=== PATIENT | male | born 1950 | race Caucasian/White ===

== ENCOUNTER → 2019-01-03 07:37 | Outpatient (CLI) | payer MEDICARE, OTHER, SELFPAY ==
--- NOTE | 2019-01-03 | DI.MRI.S_ITS ---
PROCEDURE: MR BRAIN (IAC) WWO CON INDICATIONS: Sensorineural hearing loss, unilateral, left ear, TECHNIQUE: Noncontrast sagittal T1 spin echo, axial FLAIR, axial gradient echo, axial diffusion and ADC through the brain. Axial thin-slice 3D CISS, coronal TruFISP, axial T1 spin echo with fat saturation through the internal auditory canals. After the administration of contrast, thin slice axial and coronal T1 spin echo with fat saturation through the internal auditory canals, and axial T1 spin echo with fat saturation through the brain. COMPARISON: [facility], MR, STROKE PROTOCOL, 09/27/2015, 16:57. [facility], CT, HEAD WITHOUT CONTRAST, 09/27/2015, 14:51. FINDINGS: Image quality: Excellent. Cerebellopontine angles: No cerebellopontine angle masses. Inner ear structures appear normally formed. No suspicious enhancement in the internal auditory canal or along the course of the 7th cranial nerve. CSF spaces: Ventricles are normal in size and shape. No extra-axial fluid collections. Basal cisterns are patent. Brain: No intracranial bleeds or mass effects. David-white matter interface is intact. No abnormal intracranial enhancement. Brain parenchymal volume loss is seen. Mild chronic small vessel ischemic change is seen. Diffusion weighted images demonstrate no acute ischemic insults. Brainstem appears normal. Normal intravascular flow voids are present. Skull and face: Calvarial marrow signal is normal. Orbits appear normal. Sinuses: Sinuses and mastoids are clear. IMPRESSION: No significant abnormality is seen. Specifically, no masses or abnormal enhancement are seen within the cerebellopontine angle cisterns or within the internal auditory canals. Note is made of age-appropriate brain parenchymal volume loss and chronic small vessel ischemic changes. No findings of acute or subacute infarction can be seen. Dictated by: Jeffrey Watts M.D. on 01/03/2019 at 8:06 Approved by: Jeffrey Watts M.D. on 01/03/2019 at 8:10
== END ==
PROVIDERS: Family Provider Internal Medicine; PCP Internal Medicine; Visit Provider Otolaryngology
DX: H90.42 Sensorineural hearing loss, unilateral, left ear, with unrestricted hearing on the contralateral side (principal)
CPT/HCPCS: 70553; A9579

== ENCOUNTER 2019-06-25 07:22 | Day surgery (SDC) | payer MEDICARE, OTHER, SELFPAY ==
--- NOTE | 2019-06-25 | PATH_ITS ---
[facility] Accession Number: [id number] . 01 Material submitted: . colon - ASCENDING COLON POLYP X2 . 01 Clinical history: . COLONOSCOPY W/POSS BX . 02 Diagnosis: Ascending Colon Polyp x2: Portions of tubular adenoma x2. Superficial portion of colorectal mucosa x1 with a benign lymphoid aggregate and no significant histomorphologic abnormality. MRV 06/26/2019 1114 Local . 02 Electronically signed: . Marilyn Jama MD, Pathologist NPI- [id number] . 01 Gross description: . ASCENDING COLON POLYP X2: Received in formalin are 3 fragment(s) of cardenas, soft tissue measuring 0.1 x 0.1 x 0.1 cm to 0.3 x 0.3 x 0.2 cm submitted entirely in 1 cassette(s) /DM 06/25/2019 1918 Local . 02 Pathologist provided ICD-10: Z86.010, K63.5 . 02 CPT . 188802 Performed at: 01 [facility] [address], [place], [place] [id number] MD Jamaal Peace MD Phone: [phone] Performed at: [address] [facility] [address] [place], [place] [id number] MD Amber Washington MD Phone: [phone]
[2019-06-25 07:57] VITALS: BP 141/84; PULSE 74; RESP 18; TEMP 36.6; O2SAT 98
[2019-06-25 07:59] VITALS: BMI 25.0
[2019-06-25] MEDS: SODIUM CHLORIDE 0.9% 1,000 ML 42 ML IV (08:17)
--- NOTE | 2019-06-25 08:50 | PM.HP.1 ---
History of Present Illness History of Present Illness Chief complaint: [id number] COLONOSCOPY W/POSS BX Patient History Family & Social History Social History: household members spouse Meds Home Medications and Allergies Home Medications Medication Instructions Recorded Confirmed Type amlodipine 10 mg PO DAILY 06/25/19 06/25/19 History rosuvastatin 10 mg PO DAILY 06/25/19 06/25/19 History Allergies Allergy/AdvReac Type Severity Reaction Status Date / Time No Known Drug Allergies Allergy Verified 06/25/19 08:37 Exam Vital Signs (past 8 hours): - 06/25/19 07:57 Temperature 97.9 F Pulse Rate 74 Respiratory Rate 18 Blood Pressure 141/84 H Pulse Oximetry 98 Oxygen Delivery Method Room Air Narrative Exam Narrative: Oropharynx free of lesions Chest clear to auscultation and percussion Cardiac exam reveals no S3 or murmur Assessment & Plan Assessment & Plan narrative: Personal history of colon polyps with strong family history of colon cancer in a first-degree relative (brother at for age 47) and children with adenomas at a young age in their 30s. Need for follow-up colonoscopy Risks, benefits, alternatives have been explained. Further recommendations will follow the results of the colonoscopy. I would suggest that they follow-up on their brothers care and make sure he has had genetic testings for HNPCC
[2019-06-25] MEDS: MIDAZOLAM 5 MG/5 ML VIAL IV (09:08)
[2019-06-25] MEDS: fentaNYL 250 MCG/5 ML INJ IV (09:09)
--- NOTE | 2019-06-25 09:10 | PM.OP.ENDO ---
Operative Date/Time/Diagnoses Date of procedure: 06/25/19 Time of procedure: 09:10 Procedure & Clinicians Study performed: Colonoscopy Same procedure as scheduled: Yes Indications: Personal history of colon polyps and family history of colon cancer in a brother at age 47. Children have adenomas in their 30s Surgeon: Michelle Deleon Procedure Notes Procedure in detail: After informed consent was obtained the patient was placed in a left lateral decubitus position. The video colonoscope was introduced the rectum slowly advanced to the cecum. Preparation was good. On slow withdrawal mucosa was carefully examined. The scope was removed. Patient tolerated procedure well. Blood loss none Complications none Sedation Total sedation time 20 minutes Versed 4 mg fentanyl 100 mg IV titration Findings 1. Scattered diverticulosis in left colon 2. Two polyps in the ascending colon 1 5 mm and the other 3 mm both removed completely with Jumbo biopsy forceps 3. Otherwise negative colonoscopy to cecum We will get pathology results to him but suggest follow-up in 3-5 years. I also suggest a check with his brother regarding whether he has been tested for Galeas syndrome. This would help determine whether he should have follow-up colonoscopies and a 2 year interval or 5 year interval.
[2019-06-25 09:14] VITALS: BP 116/70; PULSE 61; RESP 12; TEMP 36.7; O2SAT 96
[2019-06-25 09:19] VITALS: BP 107/67; PULSE 59; RESP 8; O2SAT 95
[2019-06-25 09:27] VITALS: BP 109/66; PULSE 64; RESP 10; O2SAT 96
[2019-06-25 09:30] VITALS: BP 107/73; PULSE 62; RESP 12; TEMP 36.8; O2SAT 95
== END 2019-06-25 09:44 | disposition home or self-care (01) ==
PROVIDERS: Family Provider Internal Medicine; PCP Internal Medicine; Visit Provider Internal Medicine Gastroenterology
PROC: 0DJD8ZZ Inspection of Lower Intestinal Tract, Via Natural or Artificial Opening Endoscopic (ICD-10-PCS; CPT 45378; principal; 2019-06-25 08:30)
DX: Z12.11 Encounter for screening for malignant neoplasm of colon (principal); Z86.010 Personal history of colon polyps; Z80.0 Family history of malignant neoplasm of digestive organs; K57.30 Diverticulosis of large intestine without perforation or abscess without bleeding; D12.2 Benign neoplasm of ascending colon
CPT/HCPCS: 45380; J2250; J3010

== ENCOUNTER → 2019-07-02 15:51 | Outpatient (ROUT) | payer MEDICARE, OTHER, SELFPAY ==
[2019-07-02 16:33] LABS: Aspartate Aminotransferase 45 IU/L (17-59); Blood Urea Nitrogen 22 mg/dL (9-20); Calcium 9.9 mg/dL (8.4-10.2); Carbon Dioxide 30 mmol/L (22-32); Chloride 101 mmol/L (98-107); Cholesterol 95 mg/dL (140-199); Estimated Glomerular Filt Rate > 60.0 mL/min (>60); Glucose 96 mg/dL (80-110); HDL Cholesterol 42 mg/dL (40-60); HEMOLYSIS < 15 (0-50); LDL Cholesterol Calculated 35 mg/dL (<100); Potassium 4.4 mmol/L (3.4-5.1); Sodium 140 mmol/L (137-145); Triglycerides 90 mg/dL (35-150)
[2019-07-02 17:00] LABS: Prostate Specific Antigen 3.75 ng/mL (0.10-4.00)
== END ==
PROVIDERS: Family Provider Internal Medicine; PCP Internal Medicine; Visit Provider Internal Medicine
DX: I10 Essential (primary) hypertension (principal); E78.2 Mixed hyperlipidemia; N40.0 Benign prostatic hyperplasia without lower urinary tract symptoms
CPT/HCPCS: 80048; 80061; 84153; 84450

== ENCOUNTER → 2020-07-05 19:30 | Outpatient (ROUT) | payer MEDICARE, OTHER, SELFPAY ==
[2020-07-05 19:46] LABS: Add Manual Diff / Slide Review NO; Basophils Absolute Auto 0 /uL (0-100); Basophils Percent Auto 0.4 % (0-2); Eosinophils Absolute Auto 100 /uL (0-450); Eosinophils Percent Auto 1.2 % (2-4); Hematocrit 39.5 % (41-53); Hemoglobin 13.7 g/dL (13.5-17.5); Lymphocytes Absolute Auto 2300 /uL (1100-4500); Lymphocytes Percent Auto 28.8 % (25-40); Mean Corpuscular HGB Conc 34.6 % (30-36); Mean Corpuscular Hemoglobin 31.9 PG (26-34); Monocytes Absolute Auto 700 /uL (0-900); Monocytes Percent Auto 8.9 % (3-14); Neutrophils Absolute Auto 4800 /uL (1500-7000); Neutrophils Percent Auto 60.7 % (50-75); Platelet Count 223 X10^3/uL (150-400); Red Blood Cell Count 4.29 X10^6/uL (4.5-5.9); Red Cell Distribution Width 12.6 % (11.6-14.8); White Blood Cell Count 7.9 X10^3/uL (4.5-11.0)
[2020-07-05 19:55] LABS: Aspartate Aminotransferase 36 IU/L (17-59); BUN Creatinine Ratio 25.3 (6-22); Blood Urea Nitrogen 23 mg/dL (9-20); Calcium 9.6 mg/dL (8.4-10.2); Carbon Dioxide 30 mmol/L (22-32); Chloride 104 mmol/L (98-107); Cholesterol 104 mg/dL (140-199); Estimated Glomerular Filt Rate > 60.0 mL/min (>60); Glucose 103 mg/dL (80-110); HDL Cholesterol 46 mg/dL (40-60); HEMOLYSIS < 15 (0-50); LDL Cholesterol Calculated 33 mg/dL (<100); Potassium 4.8 mmol/L (3.4-5.1); Sodium 138 mmol/L (137-145); Triglycerides 125 mg/dL (35-150)
[2020-07-05 20:24] LABS: Prostate Specific Antigen 3.59 ng/mL (0.10-4.00)
== END ==
PROVIDERS: Family Provider Internal Medicine; PCP Internal Medicine; Visit Provider Internal Medicine
DX: I10 Essential (primary) hypertension (principal); N40.0 Benign prostatic hyperplasia without lower urinary tract symptoms; E78.2 Mixed hyperlipidemia
CPT/HCPCS: 80048; 80061; 84153; 84450; 85025

== ENCOUNTER 2022-12-04 06:53 | Day surgery (SDC) | payer OTHER, SELFPAY ==
--- NOTE | 2022-12-04 | PATH_ITS ---
[facility] Accession Number: [id number] No. of containers..01 Tissue . 01 Material submitted: . colon - TRANSVERSE COLON POLYP . 01 Diagnosis: Transverse Colon Polyp, Biopsy: Tubular adenoma. MRV 12/07/2022 1429 Local . 01 Electronically signed: . Meghna York MD, Pathologist NPI- [id number] . 01 Gross description: . The specimen is received in formalin labeled with the patient's name, , and transverse colon polyp, and consists of a single cardenas soft tissue fragment measuring 0.5 cm in greatest dimension. Submitted entirely in cassette A1. ([id number]) /MRV 12/06/2022 1556 Local . 01 Pathologist provided ICD-10: D12.3 . 01 CPT . 964936 Specimen Comment: A courtesy copy of this report has been sent to [phone] Performed at: 01 [facility] [address] [place] [address], [place], [place] [id number] MD Jamaal Peace MD Phone: [phone]
[2022-12-04] MEDS: LACTATED RINGERS 1,000 ML 42 ML IV (07:09)
[2022-12-04 07:14] VITALS: BP 146/78; PULSE 69; RESP 20; TEMP 36.4; O2SAT 98; BMI 26.4
--- NOTE | 2022-12-04 07:52 | PM.HP.1 ---
History of Present Illness History of Present Illness Date Patient Seen: 12/04/22 Time Patient Seen: 07:52 Chief complaint: Dx Colonoscopy w/poss bx Narrative: Family history of colon cancer and a personal history of colon polyps. [facility] Social History household members: spouse Smoking Status: Never smoker alcohol intake: current Meds Home Medications and Allergies Home Medications Medication Instructions Recorded Confirmed Type amlodipine 10 mg tablet 10 mg PO DAILY 06/25/19 12/04/22 History Allergies Allergy/AdvReac Type Severity Reaction Status Date / Time No Known Drug Allergies Allergy Verified 12/04/22 07:13 Review of Systems Review of Systems ROS: Yes All systems reviewed with the patient and are negative except as otherwise documented Exam Vital Signs (past 8 hours): - 12/04/22 07:14 Temperature 97.5 F L Pulse Rate 69 Respiratory Rate 20 Blood Pressure 146/78 H Pulse Oximetry 98 Oxygen Delivery Method Room Air Oxygen Delivery Method Room Air Const General: cooperative HENMT Head: normal to inspection Eyes General: appearance normal, both eyes and all related structures Neck Neck: normal visual inspection Chest Chest: normal inspection of the chest Resp Effort & Inspection: normal respiratory effort Cardio Rate: regular rate GI Inspection: normal to inspection Skin General: no rashes or lesions noted Neuro General: patient alert and patient awake Extrem General: normal to inspection and no pedal edema Psych Appearance: grossly normal Assessment & Plan Assessment & Plan narrative: 71-year-old male with a family history of colon cancer and a personal history of colon polyps. Colonoscopy is pursued today.
--- NOTE | 2022-12-04 07:53 | PM.PREOP ---
Pre-operative Note Interval Note History & Physical reviewed/Exam performed by Physician: Yes Changes to H&P: No ASA Class (for procedural sedation): II
--- NOTE | 2022-12-04 08:25 | P.OP.COLON_ITS ---
Operative Date/Time/Diagnoses Date of procedure: 12/04/22 Time of procedure: 08:25 Pre-op diagnosis: Family history of colon cancer and a personal history of colon polyps Post-op diagnosis: same Procedure & Clinicians Study performed: Colonoscopy with cold snare polypectomy Same procedure as scheduled: Yes Indications: Family history of colon cancer and a personal history of colon polyps Surgeon: Zelalem Mitchell Procedure Notes SCOAP/Timeout: Done Procedure in detail: After the risks and benefits were explained, written and verbal informed consent was obtained. The patient was brought into the procedure room and placed into the left lateral decubitus position. Please see anesthesia notes for sedation details. Digital rectal examination was accomplished. The scope was introduced into the patient and advanced under direct visualization to the cecum as identified by the appendiceal orifice and ileocecal valve. The scope was slowly withdrawn to carefully examine the mucosa for any defects or lesions. Comp rehensive imaging was accomplished throughout the rectum including the dentate line. The colon was decompressed, the scope was then removed from the patient who tolerated the procedure well. Adult colonoscope Bowel prep adequate Scope withdrawal time: 9 minutes Sedation minutes: 26 Complications: none Impression: There was a diminutive polyp in the rectosigmoid removed with cold snare. It was resected but not retrieved. In the transverse colon there was an approximately 5-6 mm polyp removed with cold snare. No additional significant pathology was appreciated throughout. Endoscopic diagnosis Colon polyps x2 Post-procedure Plan for aftercare: 1. Await histopathology. 2. Repeat colonoscopy 5 years. Disposition: PACU
[2022-12-04 08:29] VITALS: BP 123/85; PULSE 48; RESP 18; TEMP 36.4; O2SAT 98
[2022-12-04 08:34] VITALS: BP 103/66; PULSE 51; RESP 10; O2SAT 97
[2022-12-04 08:39] VITALS: BP 105/69; PULSE 50; RESP 13; TEMP 36.3; O2SAT 97
[2022-12-04 08:40] VITALS: BP 104/72; PULSE 52; RESP 22; O2SAT 96
== END 2022-12-04 08:45 | disposition home or self-care (01) ==
PROVIDERS: Family Provider Internal Medicine; PCP Physician Assistant; Referring Provider Internal Medicine Gastroenterology; Visit Provider Internal Medicine Gastroenterology
PROC: 0DJD8ZZ Inspection of Lower Intestinal Tract, Via Natural or Artificial Opening Endoscopic (ICD-10-PCS; CPT 45378; principal; 2022-12-04 08:00)
DX: Z12.11 Encounter for screening for malignant neoplasm of colon (principal); Z80.0 Family history of malignant neoplasm of digestive organs; Z86.010 Personal history of colon polyps; D12.3 Benign neoplasm of transverse colon
CPT/HCPCS: 45385; J2704

== ENCOUNTER → 2023-12-17 14:30 | Outpatient (CLI) | payer OTHER, SELFPAY ==
[2023-12-18 08:45] LABS: PSA Free % 14.9 % (.); PSA, Total 4.7 ng/mL (0.0-4.0)
== END ==
PROVIDERS: Family Provider Internal Medicine; PCP Physician Assistant; Referring Provider Urology; Visit Provider Urology
DX: R97.20 Elevated prostate specific antigen [PSA] (principal)
CPT/HCPCS: 36415; 84153; 84154

== ENCOUNTER → 2024-10-24 11:34 | Outpatient (CLI) | payer MEDICARE, SELFPAY ==
--- NOTE | 2024-10-24 11:37 | DI.RAD.S_ITS ---
PROCEDURE: XR CHEST 2V INDICATIONS: COUGH TECHNIQUE: 2 views of the chest were acquired. COMPARISON: None. FINDINGS: Surgical changes and devices: None. Lungs and pleura: Lungs are clear. No pleural effusions or pneumothorax. Mediastinum: Mediastinal contours are normal. Heart size is normal. Bones and chest wall: No suspicious bony abnormalities. Soft tissues appear unremarkable. IMPRESSION: No acute cardiopulmonary abnormality is seen. Dictated by: Kendrick Tesfaye M.D. on 10/24/2024 at 13:00 Approved by: Kendrick Tesfaye M.D. on 10/24/2024 at 13:00
== END ==
LOC: RAD 11:36
PROVIDERS: Family Provider Internal Medicine; PCP Physician Assistant; Referring Provider Family Medicine; Visit Provider Family Medicine
DX: R05.1 Acute cough (principal)
CPT/HCPCS: 71046